=== PATIENT | female | born 1975 | race Caucasian/White ===

== ENCOUNTER 2023-07-29 11:42 | Outpatient (CLI) | payer OTHER, SELFPAY ==
--- NOTE | 2023-07-29 12:07 | MR_ITS ---
WS: [id number] MRI LUMBAR SPINE NONCONTRAST HISTORY: NUMBNESS TINGLING IN FEET WHEN SITTING/STANDING COMPARISON: None available. TECHNIQUE: Sagittal and axial multisequence imaging is submitted. Normal lumbar alignment with no compression fractures or marrow edema. Disc spaces and vertebral body heights are well-preserved. Conus terminates normally at L1-2 disc level. L1-L2: Normal. L2-L3: Normal. L3-L4: Mild ligamentum flavum and facet arthritis. No stenosis. L4-L5: Slight annular disc bulging encroaching into the subarticular recesses. There is very slight c ontact on the traversing LEFT L5 nerve root. Mild facet joint fluid. There is very mild LEFT foramina l narrowing. L5-S1: Mild disc bulging with a central disc protrusion. S1 nerve roots appear to be spared from disc contact. No significant stenosis. MR/MR lumbar spine wo con* [id number] IMPRESSION: 1. No high-grade central or foraminal stenosis. 2. No vertebral body fracture. 3. L4-5: There is very slight disc contact on the traversing LEFT L5 nerve morenita t. Mild LEFT foraminal narrowing. 4. Mild facet joint arthropathy from L3-4 to L5-S1. 5. Shallow central disc protrusion at L5-S1.
== END 2023-07-29 11:43 | disposition home or self-care (01) ==
LOC: RAD 11:43
PROVIDERS: PCP Nurse Practitioner; Visit Provider Nurse Practitioner
DX: M51.27 Other intervertebral disc displacement, lumbosacral region (principal)
CPT/HCPCS: 72148

== ENCOUNTER → 2023-09-15 15:49 | Outpatient (BNVA) | payer OTHER, SELFPAY | PROVIDERS: PCP Nurse Practitioner; Referring Provider Nurse Practitioner; Visit Provider Nurse Practitioner Women's Health | DX: Z12.4 Encounter for screening for malignant neoplasm of cervix (principal) | CPT/HCPCS: 87624 ==

== ENCOUNTER 2024-03-21 10:30 | Day surgery (SDC) | payer OTHER, SELFPAY ==
[2024-03-13 09:48] LABS: Basophils # 0.1 10^3/uL (0.0-0.1); Basophils % 1.1 %; Eosinophils # 0.2 10^3/uL (0.0-0.8); Eosinophils % 3.6 %; Hematocrit 36.7 % (36-47); Lymphocytes # 2.1 10^3/uL (0.8-4.8); Lymphocytes % 37.2 %; Mean Corpuscular HGB Conc 34.3 g/dL (30-55); Mean Corpuscular Volume 96.1 fl (85-98); Mean Platelet Volume 9.2 fL (7.4-10.4); Monocytes # 0.3 10^3/uL (0.2-0.9); Monocytes % 5.6 %; Neutrophils # 2.88 10^3/uL (1.8-7.7); Neutrophils % 52.3 %; Nucleated Red Blood Cells % 0 %; Platelet Count 303 10^3/cmm (157-399); Red Blood Count 3.82 10^6/uL (3.85-5.65); Red Cell Distribution Width 11.9 % (12.1-15.1); White Blood Count 5.51 10^3/uL (3.29-11.43)
--- NOTE | 2024-03-13 09:50 | P.ANESASSM_ITS ---
Pre-Anesthetic Assessment Height/Weight: Height 1.57 m Operation Date: 03/21/24 12:45 Proposed Procedures p Labioplasty 74457, N90.60(Bilateral) - Finn Ricketts MD Familial anesthetic complications: had some low blood pressure episodes with her first child Was Beta Eileen taken within 24 hours: N/A Was Clonidine taken within 24 hours: N/A Last intake: > 8 hrs Social No alcohol and No tobacco Exam alert, oriented x 3, clear to auscultation bilaterally and regular rate & rhythm Airway Mallampati: Class I Dentition: full Anesthetic Plan ASA status: 1 Anesthesia: MAC Risk of > 500 ml blood loss (7ml/kg in children): No Medications/Allergies Home Medications Medication Instructions Recorded Confirmed Last Taken Type ascorbate calcium (vitamin C) 500 500 mg PO DAILY 09/15/23 03/13/24 03/13/24 History mg tablet cholecalciferol (vitamin D3) 10 10 mcg PO DAILY 09/15/23 03/13/24 03/13/24 History mcg (400 unit) capsule zinc acetate 50 mg (zinc) capsule 50 mg PO DAILY 09/15/23 03/13/24 03/13/24 History Allergies Allergy/AdvReac Type Severity Reaction Status Date / Time No Known Allergies Allergy Verified 03/13/24 07:34 [facility] Anesthesia Medical History History of dysplastic nevus No pertinent past medical history Surgical History No pertinent past surgical history Family History Other CAD (coronary artery disease) Lung disease Denies family history of Colon cancer Ovarian cancer Prostate cancer Thyroid cancer Diabetes Heart disease Hyperlipidemia Breast cancer Hypertension Uterine cancer Stroke Social History Smoking and tobacco/nicotine status: never used tobacco/nicotine Data Anesthesia 03/13/24 09:31 03/13/24 09:31 Short CBC 03/13/24 Range/Units 09:31 WBC 5.51 (3.29-11.43) 10^3/uL Hgb 12.60 (11.27-16.99) g/dL Hct 36.7 (36-47) % MCV 96.1 (85-98) fl Plt Count 303 (157-399) 10^3/cmm Neut % (Auto) 52.3 % Neut # (Auto) 2.88 (1.8-7.7) 10^3/uL Cardiac Studies: 2 No Data to Display
[2024-03-13 10:02] LABS: Alanine Aminotransferase 14 U/L (0-33); Albumin Level 4.6 g/dL (3.5-5.2); Alkaline Phosphatase 47 U/L (35-105); Anion Gap 13.9 (5-19); Aspartate Amino Transferase 22 U/L (0-32); Blood Urea Nitrogen 4 mg/dL (6-20); Calcium 9.2 mg/dL (8.5-10.5); Carbon Dioxide 24 mmol/L (22-29); Chloride 105 mmol/L (98-107); Globulin 2.9 g/dL (1.3-4.6); Glomerular Filtration Rate 131.1 mL/min (90-130); Glucose 102 mg/dL (65-115); Osmolality Calculated 285 mOsm/kg (285-295); Potassium 3.9 mmol/L (3.5-5.1); Sodium 139 mmol/L (136-145); Total Bilirubin 0.4 mg/dL (0.15-1.2); Total Protein 7.5 g/dL (6.6-8.7)
[2024-03-21] VITALS (11 sets, daily range): BP systolic 95–120; BP diastolic 60–78; PULSE 60–89; RESP 15–21; TEMP 36.1–36.6; O2SAT 94–100; BMI 26.5
[2024-03-21 11:03] LABS: Bilirubin Urine Negative (Negative); Blood Urine Negative (Negative); Glucose Urine UA Negative (Normal); Ketones Urine Trace (Negative); Leukocyte Esterase Urine Negative (Negative); Nitrate Urine Negative (Negative); Protein Urine Negative (Negative); Urine Appearance Clear (CLEAR); Urine Color Yellow (Yellow)
[2024-03-21 11:06] LABS: Add Urine Microscopic? YES; Bacteria Urine None Seen /hpf; Hyaline Casts Urine 0-4 /lpf; RBC Urine 0-2 /hpf (0-2); Squamous Epithelial Cell Urine 0-5 /hpf (0-5); WBC Urine 0-5 /hpf (0-5)
[2024-03-21] MEDS: sodium chloride 0.9% 1,000 ML 30 ML IV (11:18)
[2024-03-21] MEDS: ceFAZolin 2,000 mg SDV 2000 MG IVP (11:23)
[2024-03-21 11:31] LABS: OR HCG Qualitative Urine Negative (Negative)
--- NOTE | 2024-03-21 12:13 | W.PM.OPSUD ---
Surgery/Procedure H&P Update DATE OF PROCEDURE: March 21, 2024 DATE H&P PERFORMED: 03/13/24 H&P UPDATE INFORMATION: I have reviewed H&P completed within last 30 days, I have examined patient prior to procedure and No changes to prior documentation PREOP DIAGNOSIS: bilateral labia hyperthrophy PLANNED PROCEDURE: Operation Date: 03/21/24 12:10 Proposed Procedures p Labioplasty 06100, N90.60(Bilateral) - Finn Ricketts MD
--- NOTE | 2024-03-21 12:16 | W.PM.OPSUD ---
Surgery/Procedure H&P Update DATE OF PROCEDURE: March 21, 2024 DATE H&P PERFORMED: 03/13/24 H&P UPDATE INFORMATION: I have reviewed H&P completed within last 30 days, I have examined patient prior to procedure and No changes to prior documentation PREOP DIAGNOSIS: bilateral labia hyperthrophy PLANNED PROCEDURE: Operation Date: 03/21/24 12:10 Proposed Procedures p Labioplasty 02143, N90.60(Bilateral) - Finn Ricketts MD
[2024-03-21] MEDS: lidocaine-epi 2% PF 1:200,000 20 mL SDV INJECTION (13:05)
--- NOTE | 2024-03-21 14:10 | ANE.PACU2 ---
Inpatient post-anesthesia follow up: Airway intact: Yes Vital signs: Temperature 98 F Pulse Rate 80 Respiratory Rate 16 Blood Pressure 101/70 Pulse Oximetry 96 Oxygen Delivery Me thod Room Air Oxygen Flow Rate Fraction of Inspir ed Oxygen Hydration adequate: Yes Nausea and vomiting: No Pain level: 1 Mental status: Baseline
--- NOTE | 2024-03-21 14:25 | P.BOP_ITS ---
Date of Procedure: 03/21/24 Surgeon: Finn Ricketts MD Intensive Care Specialist(s): Procedure(s) performed: Bilateral labioplasty Findings of the procedure(s): Labial hypertrophy Estimated blood loss: 5 Specimen(s) removed: None Post-operative diagnosis: Status post labioplasty
--- NOTE | 2024-03-21 14:26 | PM.OP ---
Operative Report Date of procedure: March 21, 2024 Pre-op diagnosis: Bilateral labial minora hypertrophy Post-op diagnosis: same Procedure done: Bilateral Labiaplasty Minora Reduction Surgeon: Finn Ricketts MD Estimated blood loss (mL): 5 IV fluids (mL): 500 Procedure: After informed consent, the risks included but were not limited to bleeding, infection, injury to internal organs. The patient was counseled on a possible laparotomy and on the potential need for hysterectomy. The patient expressed understanding of the risks involved, all questions were answered, and the patient consented to the procedure. The patient was taken to the operating room where general anesthesia was administered. She was placed in the dorsal lithotomy position and prepped and draped in sterile fashion. A time out procedure was performed. The patient was examined under anesthesia and found to have a normal uterus with normal adnexa. The patient is injected with 1% xylocaine with 1:100,000 epinephrine, a labiaplasty was carried out with the trim technique. After surgical markings made at the area of maximal labial protrusion and darkening ensuring excellent symmetry. To ensure not to over-resect and cause an overly tight introitus, two fingerbreadths in the vagina. The resection, with scissors allow fine control without thermal injury. After hemostasis, the central lamina of the labium is sutured with a horizontal running 5-0 chromic suture. One or 2 additional lengths of suturing, each more distal, help control hemostasis. The mucosa is closed with a subcuticular 4-0 Vicryl suture. The patient tolerated the procedure well and was taken to the recovery room awake and in stable condition. Sponge, needle, and instrument counts were correct X2. .
[2024-03-21] MEDS: acetaminophen 500 mg Tablet PO (14:57)
== END 2024-03-21 15:55 | disposition home or self-care (01) ==
PROVIDERS: Visit Provider Obstetrics & Gynecology
PROC: (CPT 56620; principal; 2024-03-21 12:00)
DX: N90.69 Other specified hypertrophy of vulva (principal)
CPT/HCPCS: 56620; 36415; 80053; 81001; 81025; 85025; 86850; 86900; J0131; J0690; J1100; J2250; J2405; J2704; J3010; J7030; J9999